=== PATIENT | female | born 1995 | race Caucasian/White ===

== ENCOUNTER 2017-10-25 15:10 | Emergency (ER) | payer BC ==
[2017-10-25] MEDS ORDERED: ACETAMINOPHEN 325 MG TABLET ONE (15:55)
[2017-10-25] MEDS ORDERED: NA CHLORIDE 0.9% 2,000 ML ONE (15:55)
--- NOTE | 2017-10-25 16:06 | RAD REPORT ---
EXAM DESCRIPTION: Berna Single View10/25/2017 3:56 pm CLINICAL HISTORY: Chest pain COMPARISON: November 2016 FINDINGS: The lungs appear clear of acute infiltrate. The heart is normal size IMPRESSION: No acute abnormalities displayed
[2017-10-25 16:07] LABS: Urine Blood NEGATIVE (NEG); Urine Glucose NEGATIVE (NEG); Urine Protein NEGATIVE (NEG)
[2017-10-25 16:09] LABS: Absolute Lymphocytes (CBC) 2.1 K/uL (0.7-4.9); Absolute Monocytes 0.8 K/uL (0.1-1.3); Absolute Neutrophil 7.3 K/uL (1.8-8.0); Basophils % 0.3 % (0-1.3); Eosinophils % 0.5 % (0-4.4); Hematocrit 41.6 % (36.0-45.0); Lymphocytes % 20.3 % (15.3-44.8); MCH 29.5 pg (27.0-35.0); MCV 86.4 fL (80-100); RBC Red Blood Cell Count 4.81 M/uL (3.86-4.86)
[2017-10-25 16:12] LABS: Bicarbonate 23 mEq/L (21-31); Glucose Level 135 mg/dL (65-120); Potassium 3.2 mEq/L (3.6-5.0); Sodium Level 137 mEq/L (135-145)
--- NOTE | 2017-10-25 16:13 | RAD REPORT ---
EXAM DESCRIPTION: OJExtredavid Venous Uni Ltd10/25/2017 4:02 pm CLINICAL HISTORY: left leg pain and swelling. COMPARISON: None. FINDINGS: Left common femoral, superficial femoral, popliteal and posterior tibial veins are compre ssible and demonstrate augmentation. Doppler demonstrates good flow. IMPRESSION: No evidence of deep venous thrombosis involving the left lower extremity.
[2017-10-25 16:18] LABS: ALT/SGPT 13 IU/L (10-60); AST/SGOT 18 IU/L (10-42); Albumin 4.3 g/dL (3.2-5.5); Alkaline Phosphatase 32 IU/L (42-121); BUN Blood Urea Nitrogen 9 mg/dL (6-20); Bilirubin Direct 0.1 mg/dL (0-0.2); Bilirubin Total 0.4 mg/dL (0.3-1.2); Creatine Phosphokinase 87 IU/L (22-269); Magnesium 1.7 mg/dL (1.8-2.5); Protein, Total 7.6 g/dL (6.0-8.3)
[2017-10-25 16:20] LABS: CKMB Creatine Kinase MB 0.9 ng/ml (0.3-4.0)
[2017-10-25] MEDS ORDERED: KETOROLAC 30 MG/ML INJ ONE (16:36)
[2017-10-25] MEDS ORDERED: MAGNESIUM OXIDE 400 MG TAB ONE (16:36)
[2017-10-25] MEDS ORDERED: POTASSIUM 25 MEQ EFFERV TAB ONE (16:37)
--- NOTE | 2017-10-25 18:06 | ER ---
Nurse's Notes [facility] Name: Chirag Wall Age: 22 yrs Sex: Female : 1995 Arrival Date: 10/25/2017 Time: 15:15 Bed 8 Private MD: Diagnosis: Other chest pain Presentation: 10/25 15:16 Presenting complaint: EMS states: Her chest started hurting this morning around 1100. jl7 She was diagnosed yesterday with a heart murmur. Transition of care: patient was not received from another setting of care. Onset of symptoms was October 25, 2017 at 11:00. Risk Assessment: Do you want to hurt yourself or someone else? Patient reports no desire to harm self or others. Initial Sepsis Screen: Does the patient meet any 2 criteria? No. Patient's initial sepsis screen is negative. Does the patient have a suspected source of infection? No. Patient's initial sepsis screen is negative. Care prior to arrival: Medication(s) given: ASA, 81 mg, x 4, IV initiated. 20 GA, in the left antecubital area, Glucose check: 139. 15:16 Method Of Arrival: EMS: [facility] 7 15:16 Acuity: ANNA 3 jl7 Triage Assessment: 15:18 General: Appears in no apparent distress. uncomfortable, Behavior is cooperative, jl7 anxious. Pain: Complains of pain in anterior aspect of left upper chest and xyphoid area Pain does not radiate. Pain currently is 5 out of 10 on a pain scale. Quality of pain is described as pressure, sharp, Pain began gradually, 4 hours ago. Is intermittent. EENT: No signs and/or symptoms were reported regarding the EENT system. Neuro: Level of Consciousness is awake, alert, obeys commands, Oriented to person, place, time, situation. Cardiovascular: Heart tones S1 S2 present Patient's skin is warm and dry. Respiratory: Airway is patent Respiratory effort is even, unlabored, Respiratory pattern is regular, symmetrical. GI: No signs and/or symptoms were reported involving the gastrointestinal system. : No signs and/or symptoms were reported regarding the genitourinary system. Derm: Skin is pink, warm \\T\\ dry. Musculoskeletal: No signs and/or symptoms reported regarding the musculoskeletal system. 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 - Social history:: Smoking status: Patient/guardian denies using tobacco. - Ebola Screening: : No symptoms or risks identified at this time. Screenin:07 Abuse screen: Denies threats or abuse. Nutritional screening: No deficits noted. tw2 Tuberculosis screening: No symptoms or risk factors identified. Fall Risk None identified. Assessment: 15:15 General: See triage assessment. [facility] 15:23 Reassessment: Provider at bedside. [facility] 16:22 Reassessment: Patient and/or family updated on plan of care and expected duration. Pain tw2 level reassessed. Patient is alert, oriented x 3, equal unlabored respirations, skin warm/dry/pink. pt states "im starting to feel lightheaded and short of breath", provider notified, vs stable and within normal limits. 17:04 Reassessment: Patient appears in no apparent distress at this time. Patient and/or tw2 family updated on plan of care and expected duration. Pain level reassessed. Patient is alert, oriented x 3, equal unlabored respirations, skin warm/dry/pink. 18:15 Reassessment: Patient appears in no apparent distress at this time. Patient and/or tw2 family updated on plan of care and expected duration. Pain level reassessed. Patient is alert, oriented x 3, equal unlabored respirations, skin warm/dry/pink. Vital Signs: 15:18 BP 137 / 87; Pulse 96; Resp 16 S; Pulse Ox 99% on R/A; Weight 44.91 kg; Height 5 ft. 1 jl7 in. (154.94 cm); Pain 5/10; 15:25 Temp 100.5(O); jl7 15:30 BP 129 / 92; Pulse 95; Resp 17; Pulse Ox 98% on R/A; tw2 16:22 BP 123 / 73; Pulse 102; Resp 15; Pulse Ox 100% on R/A; tw2 17:04 BP 113 / 71; Pulse 118; Resp 17; Pulse Ox 100% on R/A; tw2 17:28 BP 120 / 83; Pulse 103; Resp 18; Pulse Ox 100% on R/A; jb1 17:28 Temp 99.4(O); jb1 18:11 BP 114 / 70; Pulse 95; Resp 18; Pulse Ox 100% on R/A; tw2 15:18 Body Mass Index 18.71 (44.91 kg, 154.94 cm) jl7 ED Course: 15:15 Patient arrived in ED. jl7 15:15 Maintain EMS IV. Dressing intact. Site clean \\T\\ dry. Gauge \\T\\ site: 20 left AC. jl 7 15:15 Placed in gown. Bed in low position. radio time salesperson on. Pulse ox on. NIBP on. tw2 15:16 Doris Walter, RANDALL is Primary Nurse. jl7 15:17 Jhonny Barragan PA is PHCP. cp 15:17 Sedrick Corado MD is Attending Physician. cp 15:18 Triage completed. jl7 15:18 Arm band placed on right wrist. jl7 15:21 EKG done, by information technology data analyst. reviewed by Sedrick Corado MD. sm3 15:30 No provider procedures requiring assistance completed. Patient maintains SpO2 tw2 saturation greater than 95% on room air. 15:47 X-ray completed. Portable x-ray completed in exam room. Patient tolerated procedure bb2 well. 15:49 XRAY Chest (1 view) In Process Unspecified. EDMS 15:49 Urine collected: clean catch specimen, clear, rigo colored. jb1 16:03 US Extremity Venous Unilateral Ltd In Process Unspecified. EDMS 17:41 EKG done, by information technology data analyst. reviewed by Sedrick Corado MD. 3 18:05 Marquise Jones MD is Referral Physician. cp 18:05 Referral Physician role handed off by Marquise Jones MD cp 18:05 Fred Torres MD is Referral Physician. cp 18:15 IV discontinued, intact, bleeding controlled, No redness/swelling at site. Pressure tw2 dressing applied. Administered Medications: 16:20 Drug: Tylenol 650 mg Route: PO; jl7 18:00 Follow up: Response: No adverse reaction; Temperature is decreased tw2 16:21 Drug: NS 0.9% 1000 ml Route: IV; Rate: 100 ml/hr; Site: left antecubital; tw2 17:07 Follow up: Response: No adverse reaction; IV Status: Completed infusion; IV Intake: tw2 1000ml 18:11 Follow up: IV Status: Order to discontinue infusion tw2 16:40 Drug: Potassium Effervescent Tablet 25 mEq Route: PO; jl7 18:11 Follow up: Response: No adverse reaction tw2 16:42 Drug: TORadol 30 mg Route: IVP; Site: left antecubital; jl7 18:11 Follow up: Response: No adverse reaction tw2 16:42 Drug: Magnesium Oxide 400 mg Route: PO; jl7 18:11 Follow up: Response: No adverse reaction tw2 17:07 Drug: NS 0.9% (20 ml/kg) 20 ml/kg Route: IV; Rate: 1 bolus; Site: left antecubital; tw2 18:15 Follow up: IV Status: Order to discontinue infusion tw2 Intake: 17:07 IV: 1000ml; Total: 1000ml. tw2 Outcome: 18:06 Discharge ordered by MD. cp 18:15 Discharged to home ambulatory, with family. tw2 18:15 Condition: stable 18:15 Discharge instructions given to patient, family, Instructed on discharge instructions, follow up and referral plans. medication usage, Demonstrated understanding of instructions, follow-up care, medications, Prescriptions given X 2. 18:16 Patient left the ED. tw2 Signatures: Dispatcher [employer] Han Paez jb1 Jhonny Barragan PA PA cp Wise, Tara, RN RN tw2 Doris Walter RN RN jl7 Temitope Brandon 2 Patricia Luz 3
--- NOTE | 2017-10-25 18:06 | EDPHYS ---
Physician Documentation [facility] Name: Chirag Wall Age: 22 yrs Sex: Female : 1995 Arrival Date: 10/25/2017 Time: 15:15 Bed 8 Private MD: ED Physician Sedrick Corado HPI: 10/25 15:24 This 22 yrs old Female presents to ER via EMS with complaints of Chest Pain. cp 15:25 The patient or guardian reports chest pain that is located primarily in the anterior cp chest wall, left. The pain does not radiate. Associated signs and symptoms: Pertinent positives: lower extremity pain, Pertinent negatives: abdominal pain, cough, diaphoresis, dizziness, headache, lower extremity swelling, recent travel, syncope, vomiting. 15:25 The chest pain is described as sharp. Duration: The patient or guardian reports a cp single episode, that is still ongoing, and unchanged. Modifying factors: The symptoms are alleviated by nothing. the symptoms are aggravated by palpation of area. The patient has experienced similar episodes in the past, several times. 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 - Social history:: Smoking status: Patient/guardian denies using tobacco. - Ebola Screening: : No symptoms or risks identified at this time. ROS: 15:30 Constitutional: Negative for body aches, chills, fever, poor PO intake. cp 15:30 Eyes: Negative for injury, pain, redness, and discharge. cp 15:30 ENT: Negative for drainage from ear(s), ear pain, sore throat, difficulty swallowing, difficulty handling secretions. 15:30 Cardiovascular: Positive for chest pain, Negative for edema, palpitations. 15:30 Respiratory: Negative for cough, pleurisy, shortness of breath, wheezing. 15:30 Abdomen/GI: Negative for abdominal pain, nausea, vomiting, and diarrhea, black/tarry stool, rectal bleeding. 15:30 Back: Negative for pain at rest, pain with movement, radiated pain. 15:30 : Negative for urinary symptoms. 15:30 Skin: Negative for cellulitis, rash. 15:30 Neuro: Negative for altered mental status, syncope, near syncope, weakness. 15:30 All other systems are negative. Exam: 15:33 Constitutional: The patient appears in no acute distress, alert, awake, cp non-diaphoretic, non-toxic, well developed, well nourished. 15:33 Head/Face: Normocephalic, atraumatic. cp 15:33 Eyes: Periorbital structures: appear normal, Pupils: equal, round, and reactive to light and accomodation, Extraocular movements: intact throughout, Conjunctiva: normal, no exudate, no injection, Sclera: no appreciated abnormality, Lids and lashes: appear normal, bilaterally. 15:33 ENT: External ear(s): are unremarkable, Ear canal(s): are normal, clear, TM's: dullness, bilaterally, Nose: is normal, Mouth: Lips: moist, Oral mucosa: pink and intact, moist, Posterior pharynx: is normal, airway is patent, no erythema, no exudate, Voice: is normal. 15:33 Neck: ROM/movement: is normal, is supple, without pain, no range of motions limitations, no nuchal rigidity. 15:33 Chest/axilla: Inspection: normal, Palpation: crepitus, is not appreciated, tenderness, that is moderate, of the anterior aspect of left upper chest and mid-sternal area, that totally reproduces the patient's complaints. 15:33 Cardiovascular: Rate: normal, Rhythm: regular, Pulses: Pulses are 2+ in right radial artery and left radial artery. Edema: is not appreciated, JVD: is not appreciated. 15:33 Respiratory: the patient does not display signs of respiratory distress, Respirations: normal, no use of accessory muscles, no retractions, no splinting, no tachypnea, labored breathing, is not present, Breath sounds: are clear throughout, no decreased breath sounds, no stridor, no wheezing. 15:33 Abdomen/GI: Inspection: abdomen appears normal, Bowel sounds: active, all quadrants, Palpation: abdomen is soft and non-tender, in all quadrants, rebound tenderness, is not appreciated, voluntary guarding, is not appreciated, involuntary guarding, is not appreciated. 15:33 Back: pain, is absent, ROM is normal. 15:33 Skin: cellulitis, is not appreciated, no rash present. 15:33 Neuro: Orientation: to person, place \T\ time. Mentation: lucid, able to follow commands, Cerebellar function: is grossly normal, Motor: moves all fours, strength is normal, Sensation: no obvious gross deficits. Vital Signs: 15:18 BP 137 / 87; Pulse 96; Resp 16 S; Pulse Ox 99% on R/A; Weight 44.91 kg; Height 5 ft. 1 jl7 in. (154.94 cm); Pain 5/10; 15:25 Temp 100.5(O); jl7 15:30 BP 129 / 92; Pulse 95; Resp 17; Pulse Ox 98% on R/A; tw2 16:22 BP 123 / 73; Pulse 102; Resp 15; Pulse Ox 100% on R/A; tw2 17:04 BP 113 / 71; Pulse 118; Resp 17; Pulse Ox 100% on R/A; tw2 17:28 BP 120 / 83; Pulse 103; Resp 18; Pulse Ox 100% on R/A; jb1 17:28 Temp 99.4(O); jb1 18:11 BP 114 / 70; Pulse 95; Resp 18; Pulse Ox 100% on R/A; tw2 15:18 Body Mass Index 18.71 (44.91 kg, 154.94 cm) jl7 MDM: 15:20 Patient medically screened. cp 18:05 Data reviewed: vital signs, nurses notes, lab test result(s), EKG, radiologic studies, cp plain films, and as a result, I will discharge patient. 18:05 Test interpretation: by ED physician or midlevel provider: ECG, plain radiologic cp studies. 10/25 15:27 Order name: Basic Metabolic Panel; Complete Time: 16:23 cp 10/25 16:23 Interpretation: Normal except: K 3.2; GLUC 135. cp 10/25 15:27 Order name: CBC with Diff; Complete Time: 16:23 cp 10/25 15:27 Order name: LFT's; Complete Time: 16:23 cp 10/25 15:27 Order name: Magnesium; Complete Time: 16:23 cp 10/25 15:27 Order name: Ckmb; Complete Time: 16:23 cp 10/25 15:27 Order name: CK; Complete Time: 16:23 cp 10/25 15:27 Order name: Troponin I; Complete Time: 16:23 cp 10/25 15:27 Order name: US Extremity Venous Unilateral Ltd; Complete Time: 16:23 cp 10/25 15:28 Order name: XRAY Chest (1 view); Complete Time: 16:23 cp 10/25 15:53 Order name: Urine Dipstick--Ancillary (enter results); Complete Time: 16:23 bd 10/25 15:53 Order name: Urine --Ancillary (enter results); Complete Time: 16:23 bd 10/25 17:21 Order name: Troponin (emerg Dept Use Only); Complete Time: 18:04 tw2 10/25 18:04 Interpretation: TROPED < 0.03; Reviewed. cp 10/25 15:17 Order name: EKG; Complete Time: 15:18 cp 10/25 15:17 Order name: EKG - Nurse/Tech; Complete Time: 15:22 cp 10/25 15:27 Order name: Urine Dipstick-Ancillary (obtain specimen); Complete Time: 15:49 cp 10/25 15:27 Order name: Urine Test (obtain specimen); Complete Time: 15:49 cp 10/25 15:27 Order name: Cardiac monitoring; Complete Time: 15:49 cp 10/25 15:27 Order name: IV Saline Lock; Complete Time: 15:49 cp 10/25 15:27 Order name: Labs collected and sent; Complete Time: 15:49 cp 10/25 15:27 Order name: O2 Per Protocol; Complete Time: 15:49 cp 10/25 15:27 Order name: O2 Sat Monitoring; Complete Time: 15:49 cp 10/25 17:21 Order name: EKG - Nurse/Tech; Complete Time: 17:21 tw2 10/25 17:22 Order name: Vital Signs: update to include temp; Complete Time: 17:28 cp 10/25 17:56 Order name: EKG Electrocardiogram EDMS Administered Medications: 16:20 Drug: Tylenol 650 mg Route: PO; jl7 18:00 Follow up: Response: No adverse reaction; Temperature is decreased tw2 16:21 Drug: NS 0.9% 1000 ml Route: IV; Rate: 100 ml/hr; Site: left antecubital; tw2 17:07 Follow up: Response: No adverse reaction; IV Status: Completed infusion; IV Intake: tw2 1000ml 18:11 Follow up: IV Status: Order to discontinue infusion tw2 16:40 Drug: Potassium Effervescent Tablet 25 mEq Route: PO; jl7 18:11 Follow up: Response: No adverse reaction tw2 16:42 Drug: TORadol 30 mg Route: IVP; Site: left antecubital; jl7 18:11 Follow up: Response: No adverse reaction tw2 16:42 Drug: Magnesium Oxide 400 mg Route: PO; jl7 18:11 Follow up: Response: No adverse reaction tw2 17:07 Drug: NS 0.9% (20 ml/kg) 20 ml/kg Route: IV; Rate: 1 bolus; Site: left antecubital; tw2 18:15 Follow up: IV Status: Order to discontinue infusion tw2 Disposition: 18:34 Co-signature as Attending Physician, Sedrick Corado MD. rn Disposition: 10/25/17 18:06 Discharged to Home. Impression: Other chest pain. - Condition is Stable. - Discharge Instructions: Chest Wall Pain, Potassium Content of Foods. - Prescriptions for Naprosyn 375 mg Oral Tablet - take 1 tablet by ORAL route 2 times per day take with food; 20 tablet. Potassium Chloride 10 mEq Oral Capsule, Sustained Release - take 1 tablet by ORAL route every 12 hours for 3 days; 6 tablet. - Medication Reconciliation Form, Thank You Letter, Antibiotic Education, Prescription Opioid Use form. - Follow up: Marquise Jones MD; When: 1 - 2 days; Reason: Recheck today's complaints. Follow up: Fred Torres MD; When: 1 - 2 days; Reason: Recheck today's complaints. - Problem is new. - Symptoms have improved. Signatures: Dispatcher [employer] EDMS Sedrick Corado MD MD rn Page, Corey, PA PA cp Wise, Tara, RN RN tw2 Doris Walter RN RN jl7 Corrections: (The following items were deleted from the chart) 18:16 18:06 10/25/2017 18:06 Discharged to Home. Impression: Other chest pain. Condition is tw2 Stable. Forms are Medication Reconciliation Form, Thank You Letter, Antibiotic Education, Prescription Opioid Use. Follow up: Fred Torres; When: 1 - 2 days; Reason: Recheck today's complaints. Problem is new. Symptoms have improved. cp
--- NOTE | 2017-10-26 06:16 | EKG ---
Test Date: 2017-10-25 Test Time: 17:17:10 Dinkey Engineer: JOE MEASUREMENT RESULTS: Intervals: Rate: 95 [place]: 132 QRSD: 80 QT: 346 QTc: 434 [place]: P: 58 [place]: 132 QRS: 73 T: 35 INTERPRETIVE STATEMENTS: Normal sinus rhythm Normal ECG Compared to ECG 10/25/2017 15:14:45 Sinus tachycardia no longer present Electronically Signed On 10-26-17 06:15:21 CDT by Marquise Jones
--- NOTE | 2017-10-26 06:18 | EKG ---
Test Date: 2017-10-25 Test Time: 15:14:45 Deburrer Strip: JOE MEASUREMENT RESULTS: Intervals: Rate: 114 [place]: 122 QRSD: 86 QT: 320 QTc: 441 [place]: P: 71 [place]: 122 QRS: 57 T: 43 INTERPRETIVE STATEMENTS: Sinus tachycardia Otherwise normal ECG Compared to ECG 11/23/2016 15:45:22 Myocardial infarct finding no longer present Electronically Signed On 10-26-17 06:17:17 CDT by Marquise Jones
== END 2017-10-25 18:16 | disposition home or self-care (01) ==
LOC: ER 15:10
DX: R07.89 Other chest pain (principal); I10 Essential (primary) hypertension; Z88.2 Allergy status to sulfonamides
CPT/HCPCS: 36415; 71045; 80048; 80076; 81003; 81025; 82550; 82553; 83735; 84484; 85025; 93005; 93971; 96361; 96374; 99285; J7030

== ENCOUNTER 2018-05-17 14:49 | Emergency (ER) | payer BC ==
[2018-05-17 16:31] LABS: Absolute Lymphocytes (CBC) 1.5 K/uL (0.7-4.9); Absolute Monocytes 0.7 K/uL (0.1-1.3); Absolute Neutrophil 7.4 K/uL (1.8-8.0); Basophils % 0.2 % (0-1.3); Eosinophils % 0.4 % (0-4.4); Hematocrit 45.4 % (36.0-45.0); Lymphocytes % 15.4 % (15.3-44.8); Monocytes % 6.9 % (3.3-12.3); RBC Red Blood Cell Count 5.12 M/uL (3.86-4.86)
[2018-05-17 16:35] LABS: Protime INR 1.08
[2018-05-17 16:46] LABS: ALT/SGPT 21 U/L (12-78); AST/SGOT 12 U/L (15-37); Albumin 4.5 g/dL (3.4-5.0); Alkaline Phosphatase 43 U/L (45-117); BUN Blood Urea Nitrogen 15 mg/dL (7-18); Bicarbonate 27 mmol/L (21-32); Bilirubin Direct < 0.1 mg/dL (0-0.2); Bilirubin Total 0.3 mg/dL (0.2-1.0); Glucose Level 94 mg/dL (74-106); Magnesium 2.3 mg/dL (1.8-2.4); NT PRO-BNP 36 pg/mL (<125); Potassium 3.4 mmol/L (3.5-5.1); Protein, Total 8.4 g/dL (6.4-8.2); Sodium Level 143 mmol/L (136-145); Troponin (Emerg Dept Use Only) < 0.02 ng/mL (0.0-0.045)
--- NOTE | 2018-05-17 16:59 | RAD REPORT ---
EXAM DESCRIPTION: RAD - Chest Single View - 05/17/2018 4:45 pm CLINICAL HISTORY: CHEST PAIN Chest pain. COMPARISON: Chest Single View dated 10/25/2017; Chest Pa And Lat (2 Views) dated 11/23/2016; CHEST SIN GLE VIEW dated 02/07/2015 FINDINGS: Portable technique limits examination quality. The lungs are grossly clear. The heart is normal in size. No displaced fractures. IMPRESSION: No acute intrathoracic process suspected.
[2018-05-17 17:03] LABS: Urine Blood NEGATIVE (NEG); Urine Glucose NEGATIVE (NEG); Urine Protein TRACE (NEG); Urine Specific Gravity 1.015 (1.005-1.030); Urine pH 7.5 (5.0-7.0)
--- NOTE | 2018-05-17 17:22 | RAD REPORT ---
EXAM DESCRIPTION: CT - Head angio - 05/17/2018 5:15 pm CLINICAL HISTORY: DIFFICULTY DRIVING, CHEST PAIN Headache COMPARISON: HEAD BRAIN W O CONTRAST dated 07/21/2015 TECHNIQUE: CT angiography of the head was performed with MIPs. All CT scans are performed using dose optimization technique as appropriate and may include automated exposure control or mA/KV adjustment according to patient size. FINDINGS: No evidence of aneurysm is detected. No flow-limiting stenosis or vascular malformation id entified. Antegrade flow is seen in the vertebral arteries. The vertebral arteries are codominant. The visualized dural venous sinuses are patent. IMPRESSION: No significant flow abnormality is detected.
--- NOTE | 2018-05-17 17:27 | RAD REPORT ---
EXAM DESCRIPTION: CT - Neck Angio - 05/17/2018 5:15 pm CLINICAL HISTORY: DIFFICULTY DRIVING, CHEST PAIN Neck pain, carotid bruit COMPARISON: No comparisons TECHNIQUE: CT angiography of the neck vessels was performed with MIPs. All CT scans are performed using dose optimization technique as appropriate and may include automated exposure control or mA/KV adjustment according to patient size. FINDINGS: A left aortic arch is identified with normal three vessel configuration of the great vesse ls. No significant flow abnormality is seen of the common carotid bilaterally. No significant stenosis is identified involving the cervical segments of both internal carotid arteri es. Normal flow is seen within both vertebral arteries. IMPRESSION: No significant flow abnormality of the neck vessels is identified.
--- NOTE | 2018-05-17 18:13 | ER ---
Nurse's Notes [facility] Name: Chirag Wall Age: 22 yrs Sex: Female : 1995 Arrival Date: 05/17/2018 Time: 14:53 Bed 19 Private MD: Fred Torres Diagnosis: Chest pain, unspecified Presentation: 05/17 15:08 Presenting complaint: Patient states: few weeks ago, i was at [facility] and i hj had a respiratory arrest; i had a bruit in my R carotid artery and i had a murmur in my heart; and today, an hour ago, i started having chest pain, its the same feeling when i had my respiratory arrest; and the pain moves of the L arm; reports SOB;. Transition of care: patient was not received from another setting of care. Onset of symptoms was May 17, 2018. Risk Assessment: Do you want to hurt yourself or someone else? Patient reports no desire to harm self or others. Initial Sepsis Screen: Does the patient meet any 2 criteria? No. Patient's initial sepsis screen is negative. Does the patient have a suspected source of infection? No. Patient's initial sepsis screen is negative. Care prior to arrival: None. 15:08 Method Of Arrival: Ambulatory 15:08 Acuity: ANNA 3 hj Triage Assessment: 15:12 General: Appears in no apparent distress. uncomfortable, Behavior is calm, cooperative, hj appropriate for age. Pain: Complains of pain in chest Pain radiates to left arm Pain currently is 8 out of 10 on a pain scale. Quality of pain is described as heavy, pressure, Pain began 4 hours ago. Respiratory: Reports shortness of breath Onset: The symptoms/episode began/occurred this morning, the patient has mild shortness of breath. 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 - Social history:: Smoking status: Patient/guardian denies using tobacco, Patient/guardian denies using alcohol. - Ebola Screening: : Patient negative for fever greater than or equal to 101.5 degrees Fahrenheit, and additional compatible Ebola Virus Disease symptoms Patient denies exposure to infectious person Patient denies travel to an Ebola-affected area in the 21 days before illness onset. Screenin:13 Abuse screen: Denies threats or abuse. Denies injuries from another. Nutritional hj screening: No deficits noted. Tuberculosis screening: No symptoms or risk factors identified. Fall Risk None identified. Assessment: 15:13 Cardiovascular: Rhythm is. Respiratory: Airway is patent Respiratory effort is even, hj unlabored, Respiratory pattern is regular, symmetrical, Breath sounds are clear bilaterally. 15:55 General: Appears in no apparent distress. comfortable, Behavior is calm, cooperative, em Denies fever. Pain: Complains of pain in face and right sternocleidomastoid and chest Pain currently is 8 out of 10 on a pain scale. Quality of pain is described as pressure. Neuro: Level of Consciousness is awake, alert, obeys commands, Oriented to person, place, time, situation, Appropriate for age. Cardiovascular: Reports chest pain, lightheadedness, nausea, shortness of breath, Bruits present over right Capillary refill < 3 seconds Patient's skin is warm and dry. Rhythm is sinus tachycardia. Respiratory: Reports shortness of breath Airway is patent Respiratory effort is even, unlabored, Respiratory pattern is regular, symmetrical, Breath sounds are clear bilaterally. GI: Abdomen is flat, Reports nausea, vomiting. : Urine is clear. EENT: No signs and/or symptoms were reported regarding the EENT system. Derm: Skin is intact, is healthy with good turgor, Skin is pink, warm \T\ dry. Musculoskeletal: Range of motion: intact in all extremities. 17:27 Reassessment: Patient appears in no apparent distress at this time. Patient and/or em family updated on plan of care and expected duration. Pain level reassessed. Patient is alert, oriented x 3, equal unlabored respirations, skin warm/dry/pink. Vital Signs: 15:13 BP 117 / 90; Pulse 79; Resp 18; Temp 99.7(O); Pulse Ox 98% on R/A; Weight 47.17 kg; hj Height 5 ft. 1 in. (154.94 cm); Pain 8/10; 16:20 BP 130 / 87; Pulse 89; Resp 18; Pulse Ox 99% on R/A; em 17:30 BP 122 / 90; Pulse 97; Resp 19; Pulse Ox 99% on R/A; em 15:13 Body Mass Index 19.65 (47.17 kg, 154.94 cm) ED Course: 14:53 Patient arrived in ED. mr 14:53 Fred Torres MD is Private Physician. mr 15:12 Triage completed. hj 15:13 Arm band placed on right wrist. hj 15:34 EKG done, by predictive maintenance technician. reviewed by Praneeth Lovelace MD. 3 15:38 LocoRyan LVN is Primary Nurse. em 15:55 Patient has correct armband on for positive identification. Placed in gown. Bed in low em position. Call light in reach. Side rails up X2. Adult w/ patient. patternmaker wood on. Pulse ox on. NIBP on. 16:00 Urine collected: clean catch specimen, clear. Inserted saline lock: 20 gauge in right em antecubital area, using aseptic technique. Blood collected. 16:13 Barak Jenkins PA is PHCP. jr8 16:13 Praneeth Lovelace MD is Attending Physician. jr8 16:46 XRAY Chest (1 view) In Process Unspecified. EDMS 17:16 Head angio In Process Unspecified. EDMS 17:16 Neck Angio In Process Unspecified. EDMS 17:18 CT completed. Patient tolerated procedure well. Patient moved to CT. Patient moved back nc from CT. 18:12 Scooby Hines MD is Referral Physician. jr8 18:25 No provider procedures requiring assistance completed. IV discontinued, intact, em bleeding controlled, No redness/swelling at site. Pressure dressing applied. Administered Medications: No medications were administered Outcome: 18:12 Discharge ordered by . jr8 18:25 Discharged to home ambulatory, with family. em 18:25 Condition: good 18:25 Discharge instructions given to patient, family, Instructed on discharge instructions, follow up and referral plans. Demonstrated understanding of instructions, follow-up care. 18:31 Patient left the ED. em Signatures: Dispatcher [employer] [facility] Sisi SweeneyRyan, DIGITAL FIELD SERVICE TECHNICIAN DIGITAL FIELD SERVICE TECHNICIAN em Barak Jenkins PA PA jr8 Henrry Carrion RN RN David Yen Shakira 3
--- NOTE | 2018-05-17 18:14 | EDPHYS ---
Physician Documentation [facility] Name: Chirag Wall Age: 22 yrs Sex: Female : 1995 Arrival Date: 05/17/2018 Time: 14:53 Bed 19 Private MD: Fred Torres ED Physician Praneeth Lovelace HPI: 05/17 17:12 This 22 yrs old Female presents to ER via Ambulatory with complaints of jr8 Breathing Difficulty, Chest Pain. 17:56 Patient stated that she was in [facility] a couple of weeks ago. Stated that while jr8 there started to have chest pain and then went into respiratory arrest. Heart never stopped. While at hospital stated that they found a bruit to right carotid region. No other findings and has been ok since then. Has had on/off numbness, tingling to left face along with the chest pain and shortness of breath. Stated that her right neck and back of head will hurt. Has seen cardiology before for heart murmur . 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 - Social history:: Smoking status: Patient/guardian denies using tobacco, Patient/guardian denies using alcohol. - Ebola Screening: : Patient negative for fever greater than or equal to 101.5 degrees Fahrenheit, and additional compatible Ebola Virus Disease symptoms Patient denies exposure to infectious person Patient denies travel to an Ebola-affected area in the 21 days before illness onset. ROS: 17:56 Eyes: Negative for injury, pain, redness, and discharge, ENT: Negative for injury, jr8 pain, and discharge, Neck: Negative for injury, pain, and swelling, Abdomen/GI: Negative for abdominal pain, nausea, vomiting, diarrhea, and constipation, Back: Negative for injury and pain, MS/Extremity: Negative for injury and deformity, Skin: Negative for injury, rash, and discoloration, Neuro: Negative for headache, weakness, numbness, tingling, and seizure. 17:56 Cardiovascular: Positive for chest pain, Negative for edema, orthopnea, palpitations. 17:56 Respiratory: Positive for shortness of breath. Exam: 17:56 Eyes: Pupils equal round and reactive to light, extra-ocular motions intact. Lids and jr8 lashes normal. Conjunctiva and sclera are non-icteric and not injected. Cornea within normal limits. Periorbital areas with no swelling, redness, or edema. ENT: Nares patent. No nasal discharge, no septal abnormalities noted. Tympanic membranes are normal and external auditory canals are clear. Oropharynx with no redness, swelling, or masses, exudates, or evidence of obstruction, uvula midline. Mucous membranes moist. Neck: Trachea midline, no thyromegaly or masses palpated, and no cervical lymphadenopathy. Supple, full range of motion without nuchal rigidity, or vertebral point tenderness. No Meningismus. Cardiovascular: Regular rate and rhythm with a normal S1 and S2. Grade 2/5 systolic murmur auscultated left sternal border. Normal PMI, no JVD. No pulse deficits. Respiratory: Lungs have equal breath sounds bilaterally, clear to auscultation and percussion. No rales, rhonchi or wheezes noted. No increased work of breathing, no retractions or nasal flaring. Abdomen/GI: Soft, non-tender, with normal bowel sounds. No distension or tympany. No guarding or rebound. No evidence of tenderness throughout. Back: No spinal tenderness. No costovertebral tenderness. Full range of motion. Skin: Warm, dry with normal turgor. Normal color with no rashes, no lesions, and no evidence of cellulitis. MS/ Extremity: Pulses equal, no cyanosis. Neurovascular intact. Full, normal range of motion. Neuro: Awake and alert, GCS 15, oriented to person, place, time, and situation. Cranial nerves II-XII grossly intact. Motor strength 5/5 in all extremities. Sensory grossly intact. Cerebellar exam normal. Normal gait. Vital Signs: 15:13 BP 117 / 90; Pulse 79; Resp 18; Temp 99.7(O); Pulse Ox 98% on R/A; Weight 47.17 kg; hj Height 5 ft. 1 in. (154.94 cm); Pain 8/10; 16:20 BP 130 / 87; Pulse 89; Resp 18; Pulse Ox 99% on R/A; em 17:30 BP 122 / 90; Pulse 97; Resp 19; Pulse Ox 99% on R/A; em 15:13 Body Mass Index 19.65 (47.17 kg, 154.94 cm) MDM: 16:13 Patient medically screened. 8 17:56 Data reviewed: vital signs, nurses notes, lab test result(s), EKG, radiologic studies, [facility] CT scan, plain films. Data interpreted: Pulse oximetry: on room air is 99 %. Interpretation: normal. Counseling: I had a detailed discussion with the patient and/or guardian regarding: the historical points, exam findings, and any diagnostic results supporting the discharge/admit diagnosis, lab results, radiology results, the need for outpatient follow up, a social science teacher, to return to the emergency department if symptoms worsen or persist or if there are any questions or concerns that arise at home. ED course: Patient asymptomatic. No acute findings on labs or imaging. Has cardiology appointment on Sunday. Knows to come back if anything changes or worsens . 05/17 16:13 Order name: Basic Metabolic Panel; Complete Time: 16:46 05/17 16:13 Order name: CBC with Diff; Complete Time: 16:36 05/17 16:13 Order name: LFT's; Complete Time: 16:46 05/17 16:13 Order name: Magnesium; Complete Time: 16:46 05/17 16:13 Order name: NT PRO-BNP; Complete Time: 16:46 05/17 16:13 Order name: PT-INR; Complete Time: 16:36 [facility] 05/17 15:15 Order name: EKG; Complete Time: 15:16 05/17 16:13 Order name: Troponin (emerg Dept Use Only); Complete Time: 16:46 05/17 16:13 Order name: XRAY Chest (1 view); Complete Time: 17:09 jr8 05/17 16:18 Order name: Urine Dipstick--Ancillary (enter results); Complete Time: 17:09 ag 05/17 16:18 Order name: Urine --Ancillary (enter results); Complete Time: 17:09 ag 05/17 16:52 Order name: Head angio; Complete Time: 17:30 EDMS 05/17 16:52 Order name: Neck Angio; Complete Time: 17:30 EDMI 05/17 16:13 Order name: Cardiac monitoring; Complete Time: 16:20 jr8 05/17 16:13 Order name: EKG - Nurse/Tech; Complete Time: 16:20 jr8 05/17 16:13 Order name: IV Saline Lock; Complete Time: 16:20 jr8 05/17 16:13 Order name: Labs collected and sent; Complete Time: 16:20 jr8 05/17 16:13 Order name: O2 Per Protocol; Complete Time: 16:20 jr8 05/17 16:13 Order name: O2 Sat Monitoring; Complete Time: 16:20 jr8 Administered Medications: No medications were administered Disposition: 05/17/18 18:12 Discharged to Home. Impression: Chest pain, unspecified. - Condition is Stable. - Discharge Instructions: Nonspecific Chest Pain. - Medication Reconciliation Form, Thank You Letter, Antibiotic Education, Prescription Opioid Use form. - Follow up: Scooby Hines MD; When: 5 - 6 days; Reason: Recheck today's complaints, Continuance of care, Re-evaluation by your physician. - Problem is new. - Symptoms have improved. Signatures: Dispatcher [employer] EDMS Ryan Loco, BUSINESS APPLICATIONS ANALYST BUSINESS APPLICATIONS ANALYST em Barak Jenkins PA PA jr8 Henrry Carrion RN RN hj Corrections: (The following items were deleted from the chart) 18:04 17:56 Patient stated that she was in [place] . jr8 jr8 18:31 18:12 05/17/2018 18:12 Discharged to Home. Impression: Chest pain, unspecified. em Condition is Stable. Forms are Medication Reconciliation Form, Thank You Letter, Antibiotic Education, Prescription Opioid Use. Follow up: Scooby Hines; When: 5 - 6 days; Reason: Recheck today's complaints, Continuance of care, Re-evaluation by your physician. Problem is new. Symptoms have improved. jr8
--- NOTE | 2018-05-18 13:56 | EKG ---
Test Date: 2018-05-17 Test Time: 15:18:12 Pipe Stem Aligner: JOE MEASUREMENT RESULTS: Intervals: Rate: 109 PA: 130 QRSD: 84 QT: 346 QTc: 465 [place]: P: 75 PA: 130 QRS: 91 T: 57 INTERPRETIVE STATEMENTS: Sinus tachycardia Right atrial enlargement Rightward axis Cannot rule out Anterior infarct, age undetermined Abnormal ECG Compared to ECG 10/25/2017 17:17:10 Atrial abnormality now present Right-axis deviation now present Myocardial infarct finding now present Sinus rhythm no longer present Electronically Signed On 05-18-18 13:54:03 BUSINESS PRACTICES SUPERVISOR by Scooby Hines
== END 2018-05-17 18:31 | disposition home or self-care (01) ==
LOC: ER 14:49
DX: R07.9 Chest pain, unspecified (principal); I10 Essential (primary) hypertension; Z88.2 Allergy status to sulfonamides
CPT/HCPCS: 36415; 70496; 70498; 71045; 80048; 80076; 81003; 81025; 83735; 83880; 84484; 85025; 85610; 93005; 99285